=== PATIENT | female | born 1945 | race Hispanic/Latino ===

== ENCOUNTER → 2018-07-28 | Outpatient (CLI) | payer MEDICARE, OTHER ==
[~2018-07-28] MED LIST: FOSAMAX70 MG; GEMFIBROZIL600 MG PO; HYDROCODONE; MAXALT10 MG PO; MELOXICAM7.5 MG; PANTOPRAZOLE SO40 MG PO; PHENERGAN PO; PLAQUENIL200 MG PO; ZOLPIDEM TARTRA10 MG PO
--- NOTE | 2018-07-28 11:32 | Diagnostic Imaging Report ---
Exam: Bone mineral density study. History: AGE RELATED OSTEOPOROSIS, history right knee arthroplasty Comparison: Baseline May 18, 2014, most recently July 02, 2017 Discussion: Evaluation of the left hip and lumbar spine was performed. The study is technically adequate. The patient's fracture risk is compared to an age-matched control. The patient denies prior surgery/fracture of the spine, hips or forearm. Left hip femoral neck bone mineral density: 0.7 g/cm2, T-score is -1.7, Z-score is 0.3. Left hip total bone mineral density: 0.6 g/cm2, T-score is -2.6, Z-score is -0.8. The BMD change versus baseline is + 7.3% (statistically significant) and the BMD change versus previous + 4.5% (not statistically significant). Lumbar spine total bone mineral density: 0.8 g/cm2, T-score is -2.5, Z-score is -0.1. The BMD change versus baseline is + 13.8% and the BMD change versus previous + 3.7% (both are statistically significant). Impression: 1. Bone mineralization by WHO Classification is osteoporosis, the fracture risk is high. 2. The femoral bone mineral density has increased since baseline and the lumbar spine bone density is increased since both the baseline and most recent comparison. Signed by: Dr. Eddie Stover D.O., M.M.M. on 07/28/2018 11:29 AM
--- NOTE | 2018-08-05 08:25 | Diagnostic Imaging Report ---
#[id number] - MGSCRBIL #BILATERAL DIGITAL SCREENING MAMMOGRAM WITH CAD: 07/28/2018 CLINICAL: Routine screening. Comparison is made to exams dated: 07/02/2017 mammogram and 06/21/2015 mammogram - [facility]. Current study contains 4 films. The tissue of both breasts is predominantly fatty. Current study was also evaluated with a Computer Aided Detection (CAD) system. No significant masses, calcifications, or other findings are seen in either breast. There has been no significant interval change. IMPRESSION: NEGATIVE There is no mammographic evidence of malignancy. A 1 year screening mammogram is recommended. The patient will be notified by letter of the results. Patrice oneill/lucy:08/04/2018 14:08:33 [employer] Cook: Ami ANDREA)(M), [facility] letter sent: Normal Exam Mammogram BI-RADS: 1 Negative
== END ==
LOC: MAMMO 10:15
PROVIDERS: ATTEND Internal Medicine
DX: Z12.31 Encounter for screening mammogram for malignant neoplasm of breast (principal); M81.0 Age-related osteoporosis without current pathological fracture
CPT/HCPCS: 77067; 77080

== ENCOUNTER → 2019-08-04 | Outpatient (CLI) | payer MEDICARE, MEDICAID ==
--- NOTE | 2019-08-05 16:01 | Diagnostic Imaging Report ---
EXAM: Bone mineral density study 08/04/2019 3:24 PM INDICATION: ^AGE RELATED OSTEOPOROSIS COMPARISON: Previous DEXA 07/28/2018. Baseline DEXA 05/18/2014 FINDINGS: Evaluation of the left hip and lumbar spine was performed. The study is technically adequate. The patient's fracture risk is compared to an age-matched control. The patient denies prior surgery/fracture of the spine or forearm. The patient indicates a previous hip replacement on the right. Hardware is seen in the proximal left femoral shaft. LEFT HIP * Femoral neck bone mineral density: 0.637 gm/cm2, T-score is -2.0, Z-score is 0.1. * Total bone mineral density: 0.607 gm/cm2, T-score is -2.7, Z-score is -0.8. * BMD change versus baseline is +6.5% and the BMD change versus previous is -0.8%. LUMBAR SPINE * Total bone mineral density: 0.832 gm/cm2, T-score is -2.0, Z-score is 0.5. * BMD change versus baseline is +23.2% and the BMD change versus previous is +8.3%. IMPRESSION: 1. Bone mineralization by WHO Classification is osteoporosis (left hip), the fracture risk is high. 2. Left hip bone mineral density shows significant improvement since baseline but no significant change since the previous exam. 3. Lumbar spine bone mineral density shows significant improvement since the most recent previous exam as well as baseline. Signed by: Dr. Selvin Yun M.D. on 08/05/2019 3:57 PM
--- NOTE | 2019-08-19 14:30 | Diagnostic Imaging Report ---
#[id number] - MGSCRBIL #BILATERAL DIGITAL SCREENING MAMMOGRAM WITH CAD: 08/04/2019 CLINICAL: Routine screening. Comparison is made to exams dated: 07/28/2018 mammogram and 07/02/2017 mammogram - [facility]. The tissue of both breasts is predominantly fatty. Current study was also evaluated with a Computer Aided Detection (CAD) system. There are benign lymph nodes in both breasts. No significant masses, calcifications, or other findings are seen in either breast. There has been no significant interval change. IMPRESSION: BENIGN There is no mammographic evidence of malignancy. A 1 year screening mammogram is recommended. The patient will be notified by letter of the results. RICHARD yoder/lucy:08/19/2019 10:23:33 [place] Former: Ami ANDREA)(Essence), [facility] letter sent: Compared to Prior B9 Mammogram BI-RADS: 2 Benign
== END ==
LOC: MAMMO 15:03
PROVIDERS: ATTEND Internal Medicine
DX: Z12.31 Encounter for screening mammogram for malignant neoplasm of breast (principal); M81.0 Age-related osteoporosis without current pathological fracture
CPT/HCPCS: 77067; 77080

== ENCOUNTER → 2020-09-26 | Outpatient (CLI) | payer MEDICARE | LOC: MAMMO 10:49 | PROVIDERS: ATTEND Internal Medicine | DX: Z12.31 Encounter for screening mammogram for malignant neoplasm of breast (principal); M81.0 Age-related osteoporosis without current pathological fracture | CPT/HCPCS: 77067; 77080 ==

== ENCOUNTER → 2022-01-22 | Outpatient (CLI) | payer OTHER | LOC: MAMMO 12:01 | PROVIDERS: ATTEND Internal Medicine | DX: Z12.31 Encounter for screening mammogram for malignant neoplasm of breast (principal); M81.8 Other osteoporosis without current pathological fracture | CPT/HCPCS: 77067; 77080 ==

== ENCOUNTER → 2022-11-06 | Day surgery (SDC) | payer OTHER, MEDICARE ==
[2022-11-04 15:21] LABS: BASOPHILS % 0.3 % (0.0-1.0); EOSINOPHILS # (AUTO) 0.1 (0.0-0.4); EOSINOPHILS % 1.5 % (0.0-6.0); HEMATOCRIT 37.9 % (34.2-44.1); HEMOGLOBIN 12.3 g/dL (12.0-16.0); LYMPHOCYTES # (AUTO) 1.5 (1.0-3.2); LYMPHOCYTES % 22.9 % (18.0-39.1); MEAN CORPUSCULAR HEMOGLOBIN 28.7 pg (28-32); MEAN CORPUSCULAR HGB CONC 32.5 g/dL (31-35); MEAN CORPUSCULAR VOLUME 88.3 fL (81-99); MONOCYTES # (AUTO) 0.7 (0.2-0.8); MONOCYTES % 10.4 % (4.4-11.3); NEUTROPHILS # (AUTO) 4.4 (2.1-6.9); NEUTROPHILS % 64.8 % (38.7-80.0); PLATELET COUNT 217 x10e3/uL (140-360); RED BLOOD COUNT 4.29 x10e6/uL (3.6-5.1); RED CELL DISTRIBUTION WIDTH 12.9 % (11.7-14.4)
[2022-11-04 19:10] LABS: EOSINOPHILS % (MANUAL) 2 % (0-7); LYMPHOCYTES % (MANUAL) 19 % (19-48); MONOCYTES % (MANUAL) 7 % (3.4-9.0); NEUTROPHILS % (MANUAL) 70 % (40-74); PLATELET ESTIMATE ADEQUATE; PLATELET MORPHOLOGY COMMENT NORMAL; RBC MORPHOLOGY COMMENT NORMAL
[~2022-11-06] MED LIST changes: +ASPIRIN325 MG PO; +BIOTIN1 MG PO; +FENTANYL CITRATE/PF 100MCG/2 ML INJ ONE; +FIORICET 50-301 EACH PO; +LACTATED RINGER'S 1,000 ML ONE; +LEVOTHYROXINE50 MCG PO; +LIDOCAINE HCL 2% LOCAL INJ 5 ML SDV VIAL INJ ONE; +LOSARTAN POTAS100 MG PO; +MULTIVITAMINS1 EAC6 PO; +PRAVASTATIN SOD20 MG PO; +PROLIA60 MG/1 ML SC; +PROPOFOL IV EMULSION 10 MG/ML 20 ML VIAL ONE
[2022-11-06 11:00] VITALS: BP 144/84
== END | disposition home or self-care (01) ==
LOC: OR 08:30
PROVIDERS: ATTEND Internal Medicine Gastroenterology
DX: Z09 Encounter for follow-up examination after completed treatment for conditions other than malignant neoplasm (principal); Z86.010 Personal history of colon polyps; I10 Essential (primary) hypertension; E03.9 Hypothyroidism, unspecified; M32.9 Systemic lupus erythematosus, unspecified; Z01.810 Encounter for preprocedural cardiovascular examination; Z01.812 Encounter for preprocedural laboratory examination; Z79.82 Long term (current) use of aspirin; Z79.899 Other long term (current) drug therapy
CPT/HCPCS: 36415; 45378; 85025; 93005; J2001

== ENCOUNTER → 2023-01-29 | Outpatient (CLI) | payer OTHER, MEDICARE ==
[~2023-01-29] MED LIST changes: -FENTANYL CITRATE/PF 100MCG/2 ML INJ ONE; -LACTATED RINGER'S 1,000 ML ONE; -LIDOCAINE HCL 2% LOCAL INJ 5 ML SDV VIAL INJ ONE; -PROPOFOL IV EMULSION 10 MG/ML 20 ML VIAL ONE
== END ==
LOC: MAMMO 10:34
PROVIDERS: ATTEND Internal Medicine
DX: Z12.31 Encounter for screening mammogram for malignant neoplasm of breast (principal)
CPT/HCPCS: 77067

== ENCOUNTER → 2023-01-29 | Outpatient (CLI) | payer OTHER, MEDICARE | LOC: DX 10:53 | PROVIDERS: ATTEND Internal Medicine | DX: M81.8 Other osteoporosis without current pathological fracture (principal) | CPT/HCPCS: 77080 ==